=== PATIENT | female | born 1970 | race African-American/Black ===

== ENCOUNTER → 2019-07-07 | Outpatient (CLI) | payer OTHER ==
[~2019-07-07] MED LIST: ALIVE ONCE DAI1 EACH PO; ASPIR 8181 M1 PO; FISH OIL 1,0001 EAC9 PO; LIPITOR10 MG PO; NORVASC10 MG PO; OLMSRTN-AMLDPN1 EAC2 PO; PAXIL 20 MG TAB20 MG PO; PEPCID AC20 M1 PO; PRAVASTATIN SOD20 MG PO; PREDNISONE 10 M10 M1 PO; SIMETHICONE1 ML; VICODIN; VISTARIL 25 MG25 M1 PO; VITAMIN B-121000 MC2 SUBLING; VITAMIN B-6100 MG PO; WELLBUTRIN SR150 MG PO; ZINC SULFATE220 MG PO
== END ==
LOC: BC 09:13
DX: Z12.31 Encounter for screening mammogram for malignant neoplasm of breast (principal)

== ENCOUNTER → 2019-07-10 | Outpatient (CLI) | payer OTHER | LOC: RAD 09:07 | DX: N63.10 Unspecified lump in the right breast, unspecified quadrant (principal); N63.20 Unspecified lump in the left breast, unspecified quadrant; R92.1 Mammographic calcification found on diagnostic imaging of breast ==

== ENCOUNTER → 2019-07-28 | Outpatient (CLI) | payer OTHER ==
[~2019-07-28] VITALS: Ht 167.6 cm; Wt 80.7 kg
--- NOTE | 2019-07-30 17:06 | PATH ---
[facility] [place] [address] PATHOLOGY RPT PROCEDURE Name: MALLY RICE Room #: REG [facility].#: [id number] Admission: 07/28/19 Date of : 66 Discharge: Report #: [id number] Path Case #: [id number] [facility] Accession Number: [id number] . 01 Material submitted: . PART A: colon - POLYP AT SIGMOID COLON X4. Modifiers: sigmoid PART B: colon - POLYP AT TRANSVERSE COLON. Modifiers: transverse PART C: rectosigmoid junction - POLYP AT RECTOSIGMOID X7 . 01 Clinical history: . Pre-op diagnosis: Colonoscopy screening Post-op diagnosis: Colon polyps . 02 Diagnosis: A. Polyp x4, at sigmoid colon, endoscopic biopsy: - One fragment showing tubular adenoma without high-grade dysplasia. - Remainder of fragments showing hyperplastic polyps without dysplasia. . B. Polyp, at transverse colon, endoscopic biopsy: - Hyperplastic polyp. - Negative for dysplasia. . C. Polyps x7 at rectosigmoid, endoscopic biopsy: - All fragments showing hyperplastic polyps. - Negative for dysplasia. . (IUV:rogerio; 07/30/2019) MBR 07/30/2019 1157 Local . 02 Electronically signed: . Shobha Meraz MD, Pathologist NPI- [id number] . 01 Gross description: . A. The specimen is received in formalin, labeled "Mally Rice, polyp at sigmoid". Received is a moderate amount of pale paredes to light paredes vegetative material admixed with possible soft tissue measuring 3.0 x 1.2 x 0.2 cm in aggregate dimensions. The specimen is filtered and entirely submitted in cassette A1. . B. The specimen is received in formalin, labeled "Mally Rice, polyp at transverse colon". Received are four segments of pale paredes soft tissue ranging in size from 0.3 to 0.6 cm in maximum dimensions. The specimen is submitted entirely in cassette B1. . C. The specimen is received in formalin, labeled "Mally Rice, polyp at rectosigmoid". Received are five segments of pale paredes soft tissue [address] [address] PATHOLOGY RPT PROCEDURE Name: MALLY RICE Room #: REG CLI Em#: [id number] Admission: 07/28/19 Date of : 66 Discharge: Report #: [id number] Path Case #: [id number] ranging in size from 0.2 to 0.6 cm in maximum dimensions. The specimen is submitted entirely in cassette C1. (CAA; 07/29/2019) QAC/QAC 07/30/2019 1153 Local . 02 Pathologist provided ICD-10: D12.5, K63.5 . 02 CPT . 737019, 126994, 211743 Specimen Comment: A courtesy copy of this report has been sent to [phone] Specimen Comment: [id number] Specimen Comment: Report sent to ,DR RAYO / DR LUNDBERG Performed at: [address], [place] [id number] MD Tee Stafford MD Phone: [phone] Performed at: [address] [id number] MD Shobha eMraz MD Phone: [phone]
== END | disposition home or self-care (01) ==
LOC: GI 10:11
DX: Z12.11 Encounter for screening for malignant neoplasm of colon (principal); Z80.0 Family history of malignant neoplasm of digestive organs; D12.5 Benign neoplasm of sigmoid colon; K64.8 Other hemorrhoids; I10 Essential (primary) hypertension; F32.9 Major depressive disorder, single episode, unspecified; E78.5 Hyperlipidemia, unspecified; E78.00 Pure hypercholesterolemia, unspecified; F17.210 Nicotine dependence, cigarettes, uncomplicated; Z90.710 Acquired absence of both cervix and uterus; Z88.8 Allergy status to other drugs, medicaments and biological substances; Z79.899 Other long term (current) drug therapy; Z98.890 Other specified postprocedural states
CPT/HCPCS: 62110; 62900

== ENCOUNTER → 2020-07-01 | Outpatient (CLI) | payer OTHER ==
[2020-07-01 20:06] LABS: LUTEINIZING HORMONE (LH) 35.2 mIU/mL (())
[2020-07-02 04:06] LABS: CORTISOL AM 7.6 ug/dL (6.2-19.4)
== END ==
LOC: LAB 07:17
PROVIDERS: ATTEND Neuromusculoskeletal Medicine & OMM
DX: N95.1 Menopausal and female climacteric states (principal)

== ENCOUNTER → 2020-07-19 | Outpatient (CLI) | payer OTHER | LOC: RAD 15:02 | PROVIDERS: ATTEND Neuromusculoskeletal Medicine & OMM | DX: Z12.31 Encounter for screening mammogram for malignant neoplasm of breast (principal) ==